=== PATIENT | female | born 1995 | race Two or more races ===

== ENCOUNTER 2024-05-11 12:38 | Emergency (ER) | payer OTHER ==
[~2024-05-11] VITALS: Ht 152.4 cm; Wt 56.7 kg
[2024-05-11] MEDS ORDERED: SYNTHROID50 MCG (13:03)
[2024-05-11] MEDS ORDERED: LEVOTHYROXINE25 MCG (13:03)
[2024-05-11] MEDS ORDERED: 0.9 % SODIUM CHLORIDE 1,000 ML IV STA (13:21)
[2024-05-11 14:27] LABS: CALCIUM 9.6 mg/dL (8.5-10.1); CREATININE SERUM 0.63 mg/dL (0.55-1.02); GFR 112.52; POTASSIUM 3.55 mEq/L (3.5-5.1)
[2024-05-11 14:30] LABS: HEMATOCRIT 42.4 % (36.0-45.00); HEMOGLOBIN 14.3 g/dL (12.0-15.00); MEAN CELL VOLUME 90.8 fL (80.00-100.00); MEAN CORPUSCULAR HEMOGLOBIN 30.7 pg (27.00-32.0); MEAN CORPUSCULAR HGB CONC 33.8 g/dl (32.0-36.0); PLATELET COUNT 143 K/uL (150-450); RED BLOOD COUNT 4.66 M/uL (4.00-6.00); RED CELL DISTRIBUTION WIDTH 13.6 % (11.5-14.5)
[2024-05-11 14:40] LABS: URINE APPEARANCE Clear; URINE BILIRRUBIN Negative (NEGATIVE); URINE BLOOD Negative; URINE COLOR Yellow; URINE GLUCOSE Negative (NEGATIVE); URINE KETONE 15 (NEGATIVE); URINE LEUKOCYTE Negative; URINE NITRATE Negative; URINE PROTEIN Negative (NEGATIVE); URINE UROBILINOGEN 0.2 E.U./dl
[2024-05-11 14:44] LABS: URINE EPITHELIAL CELLS 14.9 uL (0.0-38.8); URINE WBC 25.4 uL (0.0-23.2)
[2024-05-11 14:47] LABS: URINE CAST 0.61 uL (0.0-1.40)
[2024-05-11] MEDS ORDERED: CEFTRIAXONE SODIUM 1,000 MG VIAL IV ONE (16:30)
[2024-05-11] MEDS ORDERED: KETOROLAC TROMETHAMINE 30 MG VIAL IV ONE (16:30)
[2024-05-11] MEDS ORDERED: ONDANSETRON HCL 2 MG/ML VIAL IV ONE (16:30)
[2024-05-11] MEDS ORDERED: PIPERACILLIN/TAZOBACTAM SODIUM 3.375 GM in DEXTROSE 5 % IN WATER 100 ML IV SCH (18:34)
[2024-05-11] MEDS ORDERED: ACETAMINOPHEN 500 MG GEL..CAP PO PRN (18:45)
[2024-05-11] MEDS ORDERED: 0.9 % SODIUM CHLORIDE 1,000 ML IV SCH (18:45)
[2024-05-11] MEDS ORDERED: MEPERIDINE HCL/PF 25 MG/ML VIAL IM PRN (18:45)
[2024-05-11] MEDS ORDERED: ONDANSETRON HCL 4 MG in 0.9 % SODIUM CHLORIDE 50 ML IV PRN (18:45)
[2024-05-11 19:01] VITALS: BP 147/84
[2024-05-11] MEDS ORDERED: FAMOTIDINE/PF 20 MG in 0.9 % SODIUM CHLORIDE 8 ML IV PUSH SCH (21:00)
== END 2024-05-11 19:18 | disposition left against medical advice (07) ==
LOC: ER 12:40
PROVIDERS: Emergency Medicine
DX: K35.890 Other acute appendicitis without perforation or gangrene (principal); R10.9 Unspecified abdominal pain; E03.8 Other specified hypothyroidism; I88.0 Nonspecific mesenteric lymphadenitis; K59.00 Constipation, unspecified